=== PATIENT | female | born 1960 | race Caucasian/White ===

== ENCOUNTER → 2016-09-01 | Outpatient (CLI) | payer BC ==
[~2016-09-01] MED LIST: AVALIDE 12.5 MG1 TAB PO; BIO-IDENTICAL HORMON; CAT S CLAW PO; CULTURELLE10 Billion PO; OMEGA 3 120 MG-1 CAP PO; PRILOSEC20 MG PO; VITAMIN D1000 IU PO; WELLBUTRIN SR150 MG PO; ZOLOFT50 MG PO; [UNRECOGNIZED DRUG - OTHER]
== END ==
LOC: BHSO 15:18
DX: F33.41 Major depressive disorder, recurrent, in partial remission (principal)

== ENCOUNTER → 2016-09-08 | Outpatient (CLI) | payer BC | LOC: MHCPAIN 09:29 | DX: G89.29 Other chronic pain (principal); M47.817 Spondylosis without myelopathy or radiculopathy, lumbosacral region; M53.3 Sacrococcygeal disorders, not elsewhere classified; M54.16 Radiculopathy, lumbar region | CPT/HCPCS: G0463 ==

== ENCOUNTER → 2016-12-24 | Outpatient (CLI) | payer BC | LOC: BHSO 15:45 | DX: F33.41 Major depressive disorder, recurrent, in partial remission (principal) ==

== ENCOUNTER → 2017-04-21 | Outpatient (CLI) | payer BC | LOC: BHSO 15:26 | DX: F33.41 Major depressive disorder, recurrent, in partial remission (principal) ==

== ENCOUNTER → 2017-05-27 | Outpatient (CLI) | payer BC | LOC: MC.RAD 10:40 | DX: Z12.31 Encounter for screening mammogram for malignant neoplasm of breast (principal) ==

== ENCOUNTER → 2017-10-22 | Outpatient (CLI) | payer BC | LOC: BHSO 15:39 | DX: F33.41 Major depressive disorder, recurrent, in partial remission (principal) | CPT/HCPCS: G0463 ==

== ENCOUNTER → 2018-07-09 | Outpatient (CLI) | payer BC | LOC: BHSO 15:42 | DX: F41.1 Generalized anxiety disorder (principal) | CPT/HCPCS: G0463 ==

== ENCOUNTER → 2018-08-16 | Outpatient (CLI) | payer BC | LOC: MC.RAD 07-26 11:40 | DX: Z12.31 Encounter for screening mammogram for malignant neoplasm of breast (principal) ==

== ENCOUNTER → 2019-02-22 | Outpatient (CLI) | payer BC | LOC: BHSO 16:19 | DX: F33.1 Major depressive disorder, recurrent, moderate (principal) | CPT/HCPCS: G0463 ==

== ENCOUNTER → 2020-04-24 | Outpatient (CLI) | payer BC | LOC: BHSO 11:03 | DX: F33.42 Major depressive disorder, recurrent, in full remission (principal) | CPT/HCPCS: G0463 ==

== ENCOUNTER → 2020-04-26 | Outpatient (CLI) | payer BC | LOC: MC.RAD 16:22 | DX: Z12.31 Encounter for screening mammogram for malignant neoplasm of breast (principal) ==

== ENCOUNTER → 2024-02-05 | Outpatient (CLI) | payer MEDICARE, BC ==
[~2024-02-05] VITALS: Ht 170.2 cm; Wt 79.5 kg
[~2024-02-05] MED LIST changes: +BIO IDENTICAL HORMON; +COZAAR 25MG25 MG/TAB PO; +LIORESAL 1010 MG/TAB PO; +MAGNESIUM200 MG PO; +MASON NATURAL600 MG PO; +VIIBRYD10 MG PO; +VITAMIN B125000 MCG PO; +VITAMIN D31000 I1 PO; +WELLBUTRIN XL300 M1 PO; +XALATAN EYE DROPS OD
[2024-02-05 12:51] VITALS: BP 146/74; PULSE 73; TEMP 97.8
--- NOTE | 2024-02-05 13:20 | NUR ---
DR. KERNS DECIDED NOT TO MOVE FORWARD WITH PROCEDURE UPON ULTRASOUND IMAGING, THE LUMP APPEARS TO BE A LIPOMA, ACCORDING TO DR. KERNS. PATIENT ESCORTED BACK TO RAD HOLDING AREA WHERE SHE GATHERED HER ITEMS. PATIENT WAS THEN ESCORTED BY NURSE BACK TO PATIENT WAITING AREA AND SAID SHE DID NOT NEED AN ESCORT BEYOND THAT POINT. NO PROCEDURE PERFORMED, NO RECOVERY PERIOD NEEDED. ALL NEEDS MET.
== END ==
LOC: COL.RAD 11:47
DX: D17.0 Benign lipomatous neoplasm of skin and subcutaneous tissue of head, face and neck (principal)